=== PATIENT | male | born 1965 | race American Indian/Alaskan Native ===

== ENCOUNTER 2019-03-20 07:00 | Day surgery (SDC) | payer BC, OTHER ==
--- NOTE | 2019-02-06 07:25 | NUR ---
PT AMBULATES TO DEPARTMENT FOR SURGERY WITH DR. HENDERSON ON RIGHT LONG FINGER FOR CYST REMOVAL. PT INFORMS THIS RN OF OPEN WOUND/SCAB ON OPERATIVE FINGER THAT HE INJURED AT WORK THE DAY BEFORE. PT REPORTS CYST DRAINED AND IS PAINFUL. NOTIFIED OF WOUND ON OPERATIVE SITE AND SURGERY CANCELLED. PT ADVISED TO MAKE APPT WITH DR'S OFFICE SOON POSSIBLE TO RESCHEDULE. PT CALLS HIS RIDE, HEBERT, AND WILL MEET PT IN LOBBY. PT DECLINES THE NEED FOR RN TO WAIT FOR RIDE TO COME.
[~2019-03-20] VITALS: Ht 188 cm; Wt 93.0 kg
[~2019-03-20 07:00] MED LIST: ATENOLOL25 MG PO; DOXYCYCLINE HY100 MG PO; HYDROCHLOROTHIA25 MG PO; LIPITOR10 MG PO; LISINOPRIL20 MG PO; LORATADINE10 MG PO; MAGNESIUM400 M1 PO; SIMVASTATIN20 MG PO; VITAMIN B-121000 MCG PO
[2019-03-20] MEDS ORDERED: IBUPROFEN600 MG PO (07:24)
--- NOTE | 2019-03-20 09:22 | NUR ---
PT ARRIVES BACK TO TX ROOM FROM THE OR AFTER LOCAL ANESTHESIA. REPORT RECEIVED FORM GALI ZAMAN. PT DENIES PAIN/NAUSEA AND REQUESTS TO GET DRESSED. IV DC'D WNL. HEBERT, PT'S RIDE HOME CALLED. PT DRESSES SELF WITHOUT ASSISTANCE. CALL LIGHT WITHIN REACH
--- NOTE | 2019-03-20 09:23 | NUR ---
0920-PT'S RIDE ARRIVES. DC INSTRUCTIONS WITH PRECAUTIONS PROVIDED. PT DENIES QUESTIONS AND VERBALIZES UNDERSTANDING. NO PRESCRIPTION GIVEN. PT TO FOLLOW UP WITH DR. HENDERSON IN 2 WEEKS. PT AMBULATES FROM DEPARTMENT WITH SON AND FRIENDS TO HOME.
--- NOTE | 2019-03-20 14:10 | NUR ---
PT PREPPED, AWARE OF WHAT IS TO BE DONE.HAD FEW QUESTIONS-VERBALIZED HOW HE IS TO GET HOME. THANKED ME FOR CHECKING ON HIM. EXTENDED A BLESSING. WILL FOLLOW NEEDED
--- NOTE | 2019-03-25 07:04 | OR ---
[facility] [address], [place] [address] Signed DATE OF OPERATION: 03/20/2019 SURGEON: Wicho Henderson MD PREOPERATIVE DIAGNOSIS: Mucous cyst, right and left long fingers. POSTOPERATIVE DIAGNOSIS: Mucous cyst, right and left long fingers. PROCEDURE PERFORMED: Excision mucous cyst, right left and right long finger. ANESTHESIA: Local. COMPLICATIONS: There were no complications. SPECIMEN: We did send the mucous cyst on the left finger to Pathology. WHAT WAS DONE: In the waiting area, the patient had digital blocks done of both of his long fingers with 1% plain xylocaine. The patient was then taken to the operating room where both hands were prepped and draped in a routine sterile fashion. Beginning on the left, we made a longitudinal incision over the palpable cyst slightly to the radial aspect of the midline. Skin was divided sharply. Subcutaneous tissue was bluntly spread and the cyst was identified. The cyst was gently shelled out from the surrounding tissue. We used a small rongeur to remove the underlying osteophytes. The wound was gently irrigated. Hemostasis was achieved with a battery-powered coagulation device. The wound was then closed with interrupted sutures of 4-0 nylon. A sterile dressing was applied. We then switched to the right hand. Again, the cyst was palpated and found to be pretty symmetrical, right and left. We therefore made essentially a dorsal midline incision over the cyst and through skin only. Subcutaneous tissue was bluntly spread and the cyst was identified and removed in toto. There was an intriguing large almost varicose vein directly over the top of the cyst, which was also removed. Again, hemostasis was achieved with electrocautery. The wound was then closed in a single layer with 4-0 nylon. Again, a sterile dressing was applied and the patient was awakened, taken back to Electronically Signed By: WICHO HENDERSON MD 03/25/19 0704 PATIENT NAME: CHILO BURGOS CINDY OPERATIVE REPORT DATE OF : 61 REPORT #: [id number] PHYSICIAN: WICHO HENDERSON MD PCP: NO PRIMARY CARE PHYSICIAN REPORT IS CONFIDENTIAL AND NOT TO BE RELEASED WITHOUT AUTHORIZATION [facility] [address] [place] [id number] Signed his day surgery room where he arrived in stable condition. Counts were correct and antibiotic protocols were followed. Wicho Henderson MD [facility]/MODL /[id number] Copies: ~ Electronically Signed By: WICHO HENDERSON MD 03/25/19 0704 PATIENT NAME: AUBREYCHILOJANEL WHITE OPERATIVE REPORT DATE OF : 61 REPORT #: [id number] PHYSICIAN: WICHO HENDERSON MD PCP: NO PRIMARY CARE PHYSICIAN REPORT IS CONFIDENTIAL AND NOT TO BE RELEASED WITHOUT AUTHORIZATION
== END 2019-03-20 09:25 | disposition home or self-care (01) ==
LOC: DS 07:00 → OPS 07:00
PROVIDERS: Orthopaedic Surgery
PROC: 0LB80ZZ Excision of Left Hand Tendon, Open Approach (ICD-10-PCS; principal; 2019-03-20 08:30)
DX: M67.442 Ganglion, left hand (principal); I10 Essential (primary) hypertension; Z79.899 Other long term (current) drug therapy
CPT/HCPCS: J0690; J1100; J1885; J2250; J2405; J2704; J2765; J3010; J7120